=== PATIENT | male | born 1975 | race Two or more races ===

== ENCOUNTER 2018-07-15 20:24 | Emergency (ER) | payer OTHER ==
[~2018-07-15] VITALS: Ht 172.7 cm; Wt 110.0 kg
[2018-07-15 21:15] VITALS: BP 151/74
== END 2018-07-15 21:21 | disposition home or self-care (01) ==
LOC: ED 21:05
DX: B34.9 Viral infection, unspecified (principal)
CPT/HCPCS: 99283

== ENCOUNTER 2018-12-12 17:53 | Emergency (ER) | payer OTHER ==
[~2018-12-12] VITALS: Ht 170.2 cm; Wt 110.4 kg
[2018-12-12 18:21] LABS: BASOPHILS # (AUTO) 0.04 x10^3/uL (0-0.1); BASOPHILS % (AUTO) 0 % (0-1); EOSINOPHILS % (AUTO) 0 % (1-7); LYMPHOCYTES # (AUTO) 1.12 x10^3/uL (1-3.4); LYMPHOCYTES % (AUTO) 8 % (22-44); MD NO; MEAN CORPUSCULAR HEMOGLOBIN 29.4 pg (27.5-34.5); MEAN CORPUSCULAR HGB CONC 34.8 g/dL (33.2-36.2); MEAN CORPUSCULAR VOLUME 84.5 fL (81-97); MEAN PLATELET VOLUME 8.4 fL (7.4-10.4); MONOCYTES # (AUTO) 0.72 x10^3/uL (0.2-0.8); MONOCYTES % (AUTO) 5 % (2-9); NEUTROPHILS # (AUTO) 12.23 x10^3/uL (1.8-6.8); NEUTROPHILS % (AUTO) 87 % (42-75); PLATELET COUNT 234 x10^3/uL (130-400); RED BLOOD COUNT 5.48 x10^6/uL (4.38-5.82); RED CELL DISTRIBUTION WIDTH 14.2 % (9.4-14.8)
--- NOTE | 2018-12-12 18:29 | NUR ---
BREAK RN: PT REPORTS INCREASING RIGHT TESTICAL PAIN X 2 DAYS NOW RADIATING UP RIGHT ABDOMEN WITH SLIGHT ODOR WITH URINATION. PT REPORTS THAT THESE SYMPTOMS OCCURED 2 YEARS AGO AND "THE DOCTOR SAID IT WOULD COME BACK" UNSURE OF PREVIOUS DIAGNOSIS. PT GIVEN URINAL FOR UA Addendum: 12/12/18 at 1837 by XI BREAK RN: PAIN X 2 WEEKS
--- NOTE | 2018-12-12 18:30 | NUR ---
BREAK RN: MD BYERS AT BEDSIDE TO ASSESS PT
[2018-12-12 18:33] LABS: ALBUMIN 4.3 g/dL (3.4-5.0); ANION GAP 6 mmol/L (5-15); CALCIUM 8.8 mg/dL (8.5-10.1); CHLORIDE 104 mmol/L (98-107)
[2018-12-12 18:35] LABS: ALANINE AMINOTRANSFERASE 59 U/L (12-78); ALKALINE PHOSPHATASE 98 U/L (45-117); CREATININE 1.05 mg/dL (0.7-1.3); TOTAL PROTEIN 7.6 g/dL (6.4-8.2)
--- NOTE | 2018-12-12 18:38 | NUR ---
BREAK RN: JUAN CARLOS SENT TO LAB
[2018-12-12] MEDS ORDERED: MORPHINE SULFATE 4 MG/ML, 1ML ONE ×3 (18:49→22:18)
[2018-12-12] MEDS ORDERED: ONDANSETRON 2MG/ML, 2ML ONE ×2 (18:49→22:18)
[2018-12-12 18:52] LABS: CULTURE INDICATED? YES; MICROSCOPIC INDICATED
[2018-12-12] MEDS: MORPHINE SULFATE 4 MG/ML, 1ML IVPush PRN ×2 (18:52→19:13)
[2018-12-12] MEDS ORDERED: ONDANSETRON 2MG/ML, 2ML IVPush ONE ×2 (19:00→22:30)
--- NOTE | 2018-12-12 20:10 | NUR ---
new orders received for us at this time. pt resting in room with eyes closed. urinal provided. no other needs.
[2018-12-12 20:48] LABS: AMPHETAMINE SCREEN, URINE Negative (Negative); BARBITURATE SCREEN, URINE Negative (Negative); BENZODIAZEPINE SCREEN, URINE Negative (Negative); CANNABINOID SCREEN, URINE Negative (Negative); COCAINE SCREEN, URINE Negative (Negative); METHADONE SCREEN, URINE Negative (Negative); OPIATE SCREEN, URINE Negative (Negative)
--- NOTE | 2018-12-12 20:56 | NUR ---
all results back at this time. chart up for recheck.
--- NOTE | 2018-12-12 21:10 | NUR ---
pt back from us
--- NOTE | 2018-12-12 22:10 | NUR ---
REPORT FROM LOREN GALLARDO PATIENT WRITHING IN PAIN. REPORT 06/14 TESTICULAR PAIN. PROVIDER NOTIFIED. TO PLACE ORDERS SHORTLY. UPDATED ON POC, CALL NUNES IN HAND/SIDE RAILS UP
[2018-12-12] MEDS ORDERED: CIPROFLOXACIN/PMX 400MG/200ML 200 ML ONE (22:18)
[2018-12-12] MEDS ORDERED: MORPHINE SULFATE 4 MG/ML, 1ML IVPush PRN (22:30)
[2018-12-12] MEDS ORDERED: CIPROFLOXACIN/PMX 400MG/200ML 200 ML IV ONE (22:30)
[2018-12-12] MEDS ORDERED: KETOROLAC 30 MG/1 ML ONE (23:12)
[2018-12-12] MEDS ORDERED: KETOROLAC 30 MG/1 ML IVPush ONE (23:30)
--- NOTE | 2018-12-12 23:50 | NUR ---
TORADOL CONTROLLING PAIN TO 2/10. PATIENT AMBLE TO STAND/CLOTH SELF AND WALK TO RESTROOM W/OUT DIFFICULTY. TEMPERATURE NOW NORMAL WELL. FAMILY CALLED TO PROVIDE PATIENT WITH A RIDE HOME.
[2018-12-12 23:55] VITALS: BP 124/88
== END 2018-12-12 23:58 | disposition home or self-care (01) ==
LOC: ED 21:23
DX: N45.3 Epididymo-orchitis (principal); R10.32 Left lower quadrant pain; F17.200 Nicotine dependence, unspecified, uncomplicated
CPT/HCPCS: 36415; 74176; 76870; 80053; 80307; 81001; 83690; 85025; 87077; 87086; 87186; 93005; 96365; 96375; 96376; 99284; J0744; J1885; J2405

== ENCOUNTER 2018-12-17 16:40 | Emergency (ER) | payer OTHER ==
[~2018-12-17] VITALS: Ht 167.6 cm; Wt 108.4 kg
--- NOTE | 2018-12-17 16:43 | NUR ---
NO ANSWER WHEN CALLED FROM LOBBY X 1, FAMILY STATES PT IS IN BATHROOM.
--- NOTE | 2018-12-17 17:14 | NUR ---
Pt wheeled to room with EDT.
--- NOTE | 2018-12-17 17:16 | NUR ---
Pt changing into gown, taking all clothing items off as he c/o groin and back pain.
[2018-12-17 17:38] VITALS: BP 141/85
--- NOTE | 2018-12-17 17:44 | NUR ---
Medical student at bedside to evaluate pt.
[2018-12-17] MEDS ORDERED: ONDANSETRON ODT 4 MG ONE (18:14)
[2018-12-17] MEDS ORDERED: HYDROcodone/APAP 5/325 TABLET ONE (18:15)
--- NOTE | 2018-12-17 18:18 | NUR ---
Labs drawn. Pt medicated per NOV. Pt attempting to give urine sample.
--- NOTE | 2018-12-17 18:24 | NUR ---
Pt to imaging, with tech, via guromulo.
[2018-12-17 18:30] LABS: BASOPHILS # (AUTO) 0.02 x10^3/uL (0-0.1); BASOPHILS % (AUTO) 0 % (0-1); EOSINOPHILS # (AUTO) 0.07 x10^3/uL (0-0.4); EOSINOPHILS % (AUTO) 1 % (1-7); LYMPHOCYTES # (AUTO) 1.39 x10^3/uL (1-3.4); LYMPHOCYTES % (AUTO) 16 % (22-44); MD NO; MEAN CORPUSCULAR HEMOGLOBIN 29.3 pg (27.5-34.5); MEAN CORPUSCULAR VOLUME 86.1 fL (81-97); MEAN PLATELET VOLUME 7.7 fL (7.4-10.4); MONOCYTES # (AUTO) 0.57 x10^3/uL (0.2-0.8); MONOCYTES % (AUTO) 7 % (2-9); NEUTROPHILS # (AUTO) 6.58 x10^3/uL (1.8-6.8); NEUTROPHILS % (AUTO) 76 % (42-75); PLATELET COUNT 259 x10^3/uL (130-400); RED BLOOD COUNT 5.07 x10^6/uL (4.38-5.82); RED CELL DISTRIBUTION WIDTH 13.8 % (9.4-14.8)
[2018-12-17] MEDS ORDERED: ONDANSETRON ODT 4 MG PO ONE (18:30)
[2018-12-17] MEDS ORDERED: OXYcodone/APAP 5/325MG TABLET PO ONE (18:30)
[2018-12-17 18:35] LABS: ANION GAP 5 mmol/L (5-15); CALCIUM 8.6 mg/dL (8.5-10.1); CHLORIDE 106 mmol/L (98-107); CREATININE 0.92 mg/dL (0.7-1.3)
[2018-12-17 18:37] LABS: MICROSCOPIC NOT IND
--- NOTE | 2018-12-17 18:40 | NUR ---
Pt back to room from imaging.
[2018-12-17 18:41] LABS: CULTURE INDICATED? NO
[2018-12-17] MEDS ORDERED: HYDROcodone/APAP 5/325 TABLET PO ONE (19:00)
[2018-12-17] MEDS ORDERED: SODIUM CHLORIDE 0.9% 1,000ML IVBOLUS ONE (19:00)
[2018-12-17] MEDS ORDERED: SODIUM CHLORIDE FLUSH 10ML SYR IVF ONE (19:00)
[2018-12-17 19:33] LABS: PH, VENOUS 7.387 pH (7.320-7.420)
[2018-12-17 19:35] LABS: FIO2 ROOM AIR %
[2018-12-17 19:54] LABS: ACETONE, SERUM Negative (Negative)
--- NOTE | 2018-12-17 20:14 | NUR ---
PTS BS 259 AFTER 1 L NS
[2018-12-17] MEDS ORDERED: INSULIN SINGLE DOSE, ER SQ-INSULIN ONE (20:27)
[2018-12-17] MEDS ORDERED: INSULIN REGULAR 100 UNITS/ML, 3ML VIAL SQ-INSULIN ONE (20:30)
== END 2018-12-17 20:46 | disposition home or self-care (01) ==
LOC: ED 20:00
DX: N45.3 Epididymo-orchitis (principal); N50.89 Other specified disorders of the male genital organs; E11.65 Type 2 diabetes mellitus with hyperglycemia
CPT/HCPCS: 36415; 76870; 80048; 81003; 82010; 82803; 85025; 96372; 99284; J7030; Q0162